=== PATIENT | female | born 1955 | race Caucasian/White ===

== ENCOUNTER 2020-02-22 13:12 | Outpatient (CLI) | payer MEDICARE, OTHER | END 2020-02-22 23:59 | disposition home or self-care (01) | LOC: LAB.WCP 13:12 | PROVIDERS: ATTEND Physician Assistant | DX: R19.7 Diarrhea, unspecified (principal) | CPT/HCPCS: 36415; 81599; 86003 ==

== ENCOUNTER → 2020-03-30 | Outpatient (CLI) | payer MEDICARE ==
[2020-03-30 12:01] LABS: BASOPHILS % (AUTO) 1.1 %; EOSINOPHILS # (AUTO) 0.3 10^3/uL (0.0-0.7); EOSINOPHILS % (AUTO) 6.9 %; HGB - HEMOGLOBIN 13.9 g/dL (12.0-16.0); LYMPHOCYTES # (AUTO) 1.1 10^3/uL (1.5-3.5); LYMPHOCYTES % (AUTO) 30.1 %; MEAN CORPUSCULAR HEMOGLOBIN 30.5 pg (27.0-31.0); MEAN CORPUSCULAR HGB CONC 31.8 g/dL (32.0-36.0); MEAN PLATELET VOLUME 11.2 fL (7.9-10.8); MONOCYTES # (AUTO) 0.4 10^3/uL (0.0-1.0); MONOCYTES % (AUTO) 10.2 %; NEUTROPHILS # (AUTO) 1.9 10^3/uL (1.5-6.6); NEUTROPHILS % (AUTO) 51.4 %; PLT - PLATELET COUNT 215 10^3/uL (130-450); RED BLOOD COUNT 4.55 10^6/uL (4.20-5.40); RED CELL DISTRIBUTION WIDTH 12.8 % (12.0-15.0); WHITE BLOOD COUNT 3.6 x10^3/uL (4.8-10.8)
[2020-03-30 12:17] LABS: ALBUMIN 3.8 g/dL (3.2-5.5); ALBUMIN/GLOBULIN RATIO 1.4 (1.0-2.2); ALKALINE PHOSPHATASE 65 IU/L (42-121); ALT ALANINE AMINOTRANSFERASE 32 IU/L (10-60); AST ASPARTATE AMINOTRANSFERASE 28 IU/L (10-42); BILIRUBIN,TOTAL 0.6 mg/dL (0.2-1.0); BUN - BLOOD UREA NITROGEN 12 mg/dL (6-20); CALCIUM 8.9 mg/dL (8.5-10.3); CARBON DIOXIDE - CO2 25 mmol/L (21-32); CHLORIDE 106 mmol/L (101-111); CHOL/HDL RATIO 3.2 (<4.4); CHOLESTEROL 243 mg/dL; CREATININE 0.6 mg/dL (0.4-1.0); GLUCOSE 112 mg/dL (70-100); HDL CHOLESTEROL 76 mg/dL; LDL CHOLESTEROL,CALCULATED 152 mg/dL; SODIUM 137 mmol/L (135-145); TOTAL PROTEIN 6.6 g/dL (6.7-8.2); VLDL CHOLESTEROL 15 mg/dL
== END ==
LOC: LAB.WCP 09:28
PROVIDERS: ATTEND Physician Assistant
DX: E78.5 Hyperlipidemia, unspecified (principal); E03.9 Hypothyroidism, unspecified
CPT/HCPCS: 36415; 80053; 80061; 83721; 84443; 85025

== ENCOUNTER 2020-06-22 08:00 | Outpatient (CLI) | payer MEDICARE ==
[2020-06-22 18:46] LABS: BASOPHILS # (AUTO) 0.1 10^3/uL (0.0-0.1); BASOPHILS % (AUTO) 1.1 %; EOSINOPHILS # (AUTO) 0.3 10^3/uL (0.0-0.7); EOSINOPHILS % (AUTO) 5.4 %; HCT - HEMATOCRIT 45.2 % (37.0-47.0); HGB - HEMOGLOBIN 14.2 g/dL (12.0-16.0); LYMPHOCYTES # (AUTO) 1.3 10^3/uL (1.5-3.5); LYMPHOCYTES % (AUTO) 27.3 %; MEAN CORPUSCULAR HEMOGLOBIN 30.6 pg (27.0-31.0); MEAN CORPUSCULAR HGB CONC 31.4 g/dL (32.0-36.0); MEAN CORPUSCULAR VOLUME 97.4 fL (81.0-99.0); MONOCYTES # (AUTO) 0.4 10^3/uL (0.0-1.0); NEUTROPHILS # (AUTO) 2.7 10^3/uL (1.5-6.6); PLT - PLATELET COUNT 220 10^3/uL (130-450); RED BLOOD COUNT 4.64 10^6/uL (4.20-5.40); RED CELL DISTRIBUTION WIDTH 13.1 % (12.0-15.0); WHITE BLOOD COUNT 4.7 x10^3/uL (4.8-10.8)
== END 2020-06-22 23:59 | disposition home or self-care (01) ==
LOC: LAB.WCP 08:00
PROVIDERS: ATTEND Physician Assistant
DX: E78.5 Hyperlipidemia, unspecified (principal)
CPT/HCPCS: 36415; 85025

== ENCOUNTER 2020-06-22 11:00 | Outpatient (CLI) | payer MEDICARE ==
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
[2020-06-22 11:47] VITALS: BP 149/88
== END 2020-06-22 11:01 | disposition home or self-care (01) ==
LOC: SC 11:00
PROVIDERS: ATTEND Nurse Practitioner Family
DX: G47.10 Hypersomnia, unspecified (principal); R41.89 Other symptoms and signs involving cognitive functions and awareness; G47.8 Other sleep disorders; R51.9 Headache, unspecified; R06.81 Apnea, not elsewhere classified; R06.83 Snoring; E66.01 Morbid (severe) obesity due to excess calories; Z68.42 Body mass index [BMI] 45.0-49.9, adult
CPT/HCPCS: 99203; G0463; 99212

== ENCOUNTER 2020-09-19 14:52 | Outpatient (CLI) | payer MEDICARE | END 2020-09-19 14:53 | disposition home or self-care (01) | LOC: SC 14:52 | PROVIDERS: ATTEND Nurse Practitioner Family | DX: G47.33 Obstructive sleep apnea (adult) (pediatric) (principal); R09.02 Hypoxemia; E66.9 Obesity, unspecified; Z68.42 Body mass index [BMI] 45.0-49.9, adult | CPT/HCPCS: G0399 ×2; 95806 ==

== ENCOUNTER 2020-10-05 10:07 | Outpatient (CLI) | payer MEDICARE ==
--- NOTE | 2020-10-05 10:40 | SLEEP CARE CONSULTATION ---
Information from patient questionnaire entered by Margarita Ruggiero. I have reviewed and concur with the information entered by Margarita Ruggiero. This document represents the service I personally performed and the decisions made by , Cherelle Fernandez ARNP. History of Present Illness Service Date and Time: 10/05/2020 1007 Initial [place] Sleepiness Scale score: 4 (in 2020) Current [place] Sleepiness Scale score: 3 Additional HPI information: NIRALI PATRICK returns for follow up and results of the recently performed home sleep study. I explained the pathophysiology behind obstructive sleep apnea. We then spent quite a bit of time discussing different treatment options. For mild obstructive sleep apnea, surgery and oral appliance are alternatives to nasal CPAP therapy but in moderate or severe cases, nasal CPAP is the most effective and reliable treatment. Because apnea is primarily in supine position, then positional management therapy could be effective. Methods discussed such as positioning with pillows, using a T-shirt with tennis balls in the back, and shown commercial products that have a pillow format on back to prevent supine sleep. I reviewed the impact of weight changes on sleep apnea and strongly recommended losing weight. After some discussion, the patient opted to go with the nasal CPAP therapy. Nasal autoCPAP set at 4-15 cmH20 will be ordered with rationale explained. A manual titration study will be ordered if unable to find optimal pressure with office adjustments. I explained how CPAP machine works with sample devices Respironics Dreamstation and ResPartSimple [id number] and what to expect when using the machine. Using CPAP every night in order to get used to it was emphasized. Patient advised to put CPAP mask on before getting into bed so as not to fall asleep without CPAP. To assist acclimation to CPAP use, it could also be used for a short time during day while reading or watching TV. The patient was instructed to call the CPAP supplier to discuss any mechanical problem that may occur. If the mask given is uncomfortable or is difficult to keep on through the night even with adjustment, contact the CPAP supplier as many will replace with another mask style if notified before 30 days. If snoring or perceives is not getting enough air or too much air from the machine, notify this office. [facility] patient education PAP tips reviewed and given to patient. Patient counseled not drink alcohol less than 4 hours before bedtime as it can increase snoring and apnea. Patient was cautioned about risks of drowsy driving until sleepiness symptoms resolve. Sleep Study - Results Type of Sleep Study: Home sleep study Prior sleep studies: Yes Year and Where: 5-6 years ago Polysomnography/Home Sleep Study results: Physician Impression: The quality of the study is good. The length of the study is adequate (> 240 minutes). Please also see the tabulated and graphic data. 1. Obstructive Sleep Apnea-Hypopnea (ICD-10 G47.33), severe, with an AHI of 41.0 /hr and mitzy SaO2 of 83%. During the study, the patient had 237 apneas (235 obstructive, 0 central, 2 mixed) and 129 hypopneas. The longest episode lasted 127.5 seconds. The respiratory events occurred slightly more frequently during supine sleep (supine AHI was 42.3 and non-supine, 33.91). 2. Hypoxemia (ICD-10 R09.02), mild, with the lowest oxygen saturation of 83 % and 41.4 minutes with SaO2 under 90%. Baseline oxygen saturation was normal (Average oxygen saturation was 93%). Allergies and Home Medications Home medication list reviewed: Yes (no new meds) Review of Systems Review of systems same as previous: Yes (no changes) Physical Exam Heart Rate: 67 O2 Saturation: 91 Height: 5 ft 2 in Weight: 240 lb Body Mass Index: 43.9 BMI Classification: Morbidly Obese Impression and Plan 1. Obstructive Sleep Apnea-Hypopnea Syndrome, severe, with lowest oxygen saturation of 83%. Obviously this is the cause of the patients symptoms of unrefreshed sleep, and excessive daytime sleepiness. Positive pressure therapy could benefit hypertension and gastric reflux. As mentioned above, the patient will be started on nasal autoCPAP therapy with pressure set at 4-15 cmH2O. Compliance guidelines also reviewed. A copy of compliance guidelines will be given for reference at check out. Because the apnea is more severe supine, I instructed to avoid sleeping supine using pillow positioning until able to start CPAP use. * Nasal auto CPAP therapy, pressure at 4-15 cm H2O. * Attempt to lose weight. * Avoid alcohol consumption near bedtime. * Avoid supine sleep until using CPAP. * The patient is again cautioned about driving until sleepiness completely resolves. * Return one month after CPAP obtained. I will assess response to therapy and compliance at that time. Counseling Topics: Weight loss health impact Visit Type: In Office Time Spent with Patient (minutes): 21 Provider Statement: I spent 100% of the Face to Face Visit with the patient with greater than 50% spent counseling the patient and coordination of care.
== END 2020-10-05 10:08 | disposition home or self-care (01) ==
LOC: SC 10:07
PROVIDERS: ATTEND Nurse Practitioner Family
DX: G47.33 Obstructive sleep apnea (adult) (pediatric) (principal); E66.01 Morbid (severe) obesity due to excess calories; Z68.42 Body mass index [BMI] 45.0-49.9, adult
CPT/HCPCS: 99213; G0463; 99212

== ENCOUNTER 2020-12-20 13:17 | Outpatient (CLI) | payer MEDICARE ==
--- NOTE | 2020-12-20 13:57 | SLEEP CARE CONSULTATION ---
Information from patient questionnaire entered by Margarita Ruggiero. I have reviewed and concur with the information entered by Margarita Ruggiero. This document represents the service I personally performed and the decisions made by , Cherelle Fernandez ARNP. History of Present Illness Service Date and Time: 12/20/2020 1317 Previous diagnosis: Severe, Obstructive Sleep Apnea-Hypopnea Syndrome AHI: 41.0 (in 2020) Reason for follow up: first compliance Equipment type: CPAP Equipment obtained from: [employer] (got initial supplies) Mask style: Nasal Backup mask available: No (will keep old mask when replaced) Last cushion change: 1 month Prior sleep studies: Yes Year and Where: 2020 - [facility]; 5-6 years ago - unknown Type of Sleep Study: Home sleep study HPI additional information: NIRALI PATRICK was diagnosed to have severe, AHI 41.0, obstructive sleep apnea- hypopnea syndrome and returned today for CPAP therapy first compliance follow- up. CPAP Compliance Data - Data Reviewed with Patient Average duration of nightly device use: 7 hr 44 min Compliance rate %: 96.7 Current pressure setting (cmH2O): 4-15 (median 10.5, avg 11.6 and max 12.8) Humidity settin Heated hose settin Average residual AHI: 2.7 Average large leak: 6 sec Subjective Patient concerns: denies: aerophagia, mask discomfort, air blowing in eyes, mask leak noise, condensation in mask/hose, nasal congestion, dry mouth, nose, throat, epistaxis, other Observed to snore while using device: No Current pressure setting perceived as: comfortable On therapy, patient: reports: sleeping better, awakening more refreshed, being more awake and alert during the day. denies: more rested overall, drowsiness while driving Initial [place] Sleepiness Scale score: 4 (in 2019) Current [place] Sleepiness Scale score: 0 Allergies and Home Medications Home medication list reviewed: Yes (no changes) Review of Systems Review of systems same as previous: Yes (no changes) Physical Exam Heart Rate: 59 O2 Saturation: 98 Height: 5 ft 2 in Weight: 250 lb Body Mass Index: 45.7 BMI Classification: Morbidly Obese Impression and Plan 1. Obstructive Sleep Apnea-Hypopnea Syndrome, severe, with good treatment compliance and good apnea control. On CPAP therapy, the patient has better sleep quality and is more rested overall. The patients pressure will be changed to autoCPAP 10-13 cmH20 to reflect the pressures that she has been using consistently. Patient advised to contact me if pressure change is uncomfortable so that it can be adjusted. Goals for apnea control discussed. She has noted with her nasal cushion mask that the pressure feels more diffuse over her nose rather than having "jets of air" in each nostril. She does not know if this is normal. I informed her that this is normal and that if she finds it uncomfortable that she may try a different style of mask. She does not feel that the pressure is too low. Patient's apnea severity and rationale for treatment to reduce apnea, improve sleep quality and reduce cardiovascular and cerebrovascular events was reviewed. I also reviewed the benefit of consistent device use of CPAP for hypertension and gastric reflux. * Change auto CPAP pressure to 10-13 cmH2O * Notify me if snoring with mask or feeling that the pressure is too much or too little * Attempt to lose weight * Call this office if any problems using CPAP * Return for follow up in 1-2 months, or sooner if concerns arise Counseling Topics: Spare mask, Weight loss health impact Visit Type: In Office Time Spent with Patient (minutes): 23 Provider Statement: I spent 100% of the Face to Face Visit with the patient with greater than 50% spent counseling the patient and coordination of care.
== END 2020-12-20 13:18 | disposition home or self-care (01) ==
LOC: SC 13:17
PROVIDERS: ATTEND Nurse Practitioner Family
DX: G47.33 Obstructive sleep apnea (adult) (pediatric) (principal); E66.01 Morbid (severe) obesity due to excess calories; Z68.42 Body mass index [BMI] 45.0-49.9, adult
CPT/HCPCS: 99213; G0463; 99212

== ENCOUNTER 2021-02-20 10:50 | Outpatient (CLI) | payer MEDICARE ==
--- NOTE | 2021-02-20 11:13 | SLEEP CARE CONSULTATION ---
Information from patient questionnaire entered by Margarita Ruggiero. I have reviewed and concur with the information entered by Margarita Ruggiero. This document represents the service I personally performed and the decisions made by , Cherelle Fernandez ARNP. History of Present Illness Service Date and Time: 02/20/2021 1050 Previous diagnosis: Severe, Obstructive Sleep Apnea-Hypopnea Syndrome AHI: 41.0 (in 2020) Reason for follow up: other (2 month with pressure change) Equipment type: CPAP Equipment obtained from: [employer] (getting supplies as needed) Mask style: Nasal Backup mask available: Yes (other mask) Last cushion change: 3 weeks [facility]: Yes [facility] Type of Sleep Study: Home sleep study HPI additional information: NIRALI PATRICK was diagnosed to have severe, AHI 41.0, obstructive sleep apnea- hypopnea syndrome and returned today for CPAP therapy two month with pressure change follow-up. CPAP Compliance Data - Data Reviewed with Patient Average duration of nightly device use: 8 hr 12 min Compliance rate %: 100 (60 days) Current pressure setting (cmH2O): 10-13 Humidity settin Heated hose settin Average residual AHI: 2.4 Average large leak: 31 sec Subjective Patient concerns: reports: air blowing in eyes. denies: aerophagia, mask discomfort, mask leak noise, condensation in mask/hose, nasal congestion, dry mouth, nose, throat, epistaxis, other Observed to snore while using device: No Current pressure setting perceived as: too high (leaking into eyes on side) On therapy, patient: reports: sleeping better, awakening more refreshed, being more awake and alert during the day, more rested overall. denies: drowsiness while driving Initial [place] Sleepiness Scale score: 4 (in 2019) Current [place] Sleepiness Scale score: 1 Allergies and Home Medications Home medication list reviewed: Yes (no changes) Review of Systems Review of systems same as previous: Yes (no changes) Physical Exam Heart Rate: 68 O2 Saturation: 95 Height: 5 ft 2 in (pt declined weight measurement today) Impression and Plan 1. Obstructive Sleep Apnea-Hypopnea Syndrome, severe, with excellent treatment compliance and good apnea control. On CPAP therapy, the patient has better sleep quality and is more rested overall. She sleeps on her side and gets some mask leaks blowing up into her eyes. Mask leaks can be reduced by washing mask daily and changing mask cushions more frequently to improve mask seal and comfort. Additionally, mask leaks predominately from when patient sleeps on their side can be reduced by using a CPAP pillow which can be purchased online. She voiced understanding. Patient was encouraged to lose weight for their overall health and to reduce apneas. Patient's apnea severity and rationale for treatment to reduce apnea, improve sleep quality and reduce cardiovascular and cerebrovascular events was reviewed. I also reviewed the benefit of consistent device use of CPAP for hypertension and gastric reflux. * Change auto CPAP pressure to 10-12 cmH2O * Notify me if snoring with mask or feeling that the pressure is too much or too little * Attempt to lose weight * Call this office if any problems using CPAP * Return for follow up in 3 months, or sooner if concerns arise Counseling Topics: Spare mask, Weight loss health impact Visit Type: In Office Time Spent with Patient (minutes): 20 Provider Statement: I spent 100% of the Face to Face Visit with the patient with greater than 50% spent counseling the patient and coordination of care.
== END 2021-02-20 10:51 | disposition home or self-care (01) ==
LOC: SC 10:50
PROVIDERS: ATTEND Nurse Practitioner Family
DX: G47.33 Obstructive sleep apnea (adult) (pediatric) (principal)
CPT/HCPCS: 99213; G0463; 99212

== ENCOUNTER 2021-05-16 10:56 | Outpatient (CLI) | payer MEDICARE ==
[2021-05-16 11:39] VITALS: BP 134/86
--- NOTE | 2021-05-16 11:39 | SLEEP CARE CONSULTATION ---
Information from patient questionnaire entered by Brian Marcano MA. I have reviewed and concur with the information entered by Brian Marcano MA. This document represents the service I personally performed and the decisions made by , Cherelle Fernandez ARNP. History of Present Illness Service Date and Time: 05/16/2021 1056 Previous diagnosis: Severe, Obstructive Sleep Apnea-Hypopnea Syndrome AHI: 41.0 (in 2020) Reason for follow up: three month (pressure change) Equipment type: CPAP Equipment obtained from: [employer] (getting supplies as needed) Mask style: Nasal Backup mask available: Yes (old mask) Last cushion change: 1.5 weeks Prior sleep studies: Yes Year and Where: 2020 [facility]; 5-6 years [facility] - unknown Type of Sleep Study: Home sleep study HPI additional information: NIRALI PATRICK was diagnosed to have severe, AHI 41.0, obstructive sleep apnea- hypopnea syndrome and returned today for CPAP therapy three month with pressure change follow-up. Sleep Study - Results Type of Sleep Study: Home sleep study Prior sleep studies: Yes [facility] and [facility]: [facility]; 5[facility]6 years [facility] - unknown CPAP Compliance Data - Data Reviewed with Patient Average duration of nightly device use: 8 hours 43 minutes Compliance rate %: 100 Current pressure setting (cmH2O): 10 - 12 Humidity settin Heated hose settin Average residual AHI: 2.3 Central apnea: 0.4 Obstructive apnea: 1.0 Average large leak: 3 seconds Subjective Patient concerns: reports: air blowing in eyes (when moving in bed). denies: aerophagia, mask discomfort, mask leak noise, condensation in mask/hose, nasal congestion, dry mouth, nose, throat, epistaxis, other Observed to snore while using device: No Current pressure setting perceived as: comfortable On therapy, patient: reports: sleeping better, awakening more refreshed, being more awake and alert during the day, more rested overall. denies: drowsiness wh ile driving Initial [place] Sleepiness Scale score: 4 (in 2019) Current [place] Sleepiness Scale score: 0 Allergies and Home Medications Home medication list reviewed: Yes (no changes) Review of Systems Review of systems same as previous: Yes (no changes) Physical Exam Vital signs obtained and entered by: Emmanuel Marcano CMA KELSIE Blood Pressure: 134/86 (right wrist) Cuff size: wrist Heart Rate: 80 O2 Saturation: 96 (with mask) Height: 5 ft 2 in (pt declined weight measurement today) Weight: 240 lb (info per PT, did not want to be weighed. ) Body Mass Index: 43.9 BMI Classification: Morbidly Obese Impression and Plan 1. Obstructive Sleep Apnea-Hypopnea Syndrome, severe, with good treatment compliance and good apnea control. On CPAP therapy, the patient has better sleep quality and is more rested overall. Patient was disappointed when she tried to contact her DME about how often to change her mask because no one could answer her question. She did figure out on her own that she had enough supplies to change her mask 2 times a month. I did advise her that she should change out her mask cushion twice a month. She asked questions about CPAP outside contractor sales and I advised her that the FDA has not deemed them safe for use and that she should follow recessing machine operator's recommendations for warm soapy water for cleaning. She voiced understanding. Patient encouraged to try to lose weight to reduce apneas and improve her overall health. Patient's apnea severity and rationale for treatment to reduce apnea, improve sleep quality and reduce cardiovascular and cerebrovascular events was reviewed. I also reviewed the benefit of consistent device use of CPAP for hypertension and gastric reflux. * Continue auto CPAP pressure at 10-12 cmH2O * Notify me if snoring with mask or feeling that the pressure is too much or too little * Attempt to lose weight * Call this office if any problems using CPAP * Return for follow up in 6 months, or sooner if concerns arise Counseling Topics: Spare mask, Weight loss health impact Visit Type: In Office Time Spent with Patient (minutes): 24 Provider Statement: I spent 100% of the Face to Face Visit with the patient with greater than 50% spent counseling the patient and coordination of care.
== END 2021-05-16 10:57 | disposition home or self-care (01) ==
LOC: SC 10:56
PROVIDERS: ATTEND Nurse Practitioner Family
DX: G47.33 Obstructive sleep apnea (adult) (pediatric) (principal); E66.01 Morbid (severe) obesity due to excess calories; Z68.41 Body mass index [BMI] 40.0-44.9, adult
CPT/HCPCS: 99213; G0463; 99212

== ENCOUNTER 2021-10-10 11:25 | Emergency (ER) | payer MEDICARE ==
--- NOTE | 2021-10-10 11:50 | ED Physician Documentation ---
History of Present Illness - Stated complaint Stated Complaint: FALL,FACE INJURY - Chief complaint Chief Complaint: Laceration - Additonal information Additional information: 66-year-old female presents emergency department for evaluation of facial trauma. [place] forward landing directly on cement. She did not have loss of consciousness. She is not anticoagulated. She was able to get up on her own and drive to the emergency department however she has a moderate amount of epistaxis predominantly on the left side as well as ecchymosis and laceration to her nose with deviation. She also has pain in her teeth and upper lip secondary to contusion. Review of Systems Constitutional: reports: Reviewed and negative Eyes: reports: Reviewed and negative Nose: reports: Epistaxis, Other (Left Septal deviation) Throat: reports: Dental pain / toothache. denies: Oral lesions / sores, Sore throat Cardiac: reports: Reviewed and negative Respiratory: reports: Reviewed and negative GI: reports: Reviewed and negative : reports: Reviewed and negative PD PAST MEDICAL HISTORY - Past Medical History Past Medical History: No Cardiovascular: Hypertension Endocrine/Autoimmune: HyPERthyroidism - Past Surgical History Past Surgical History: Yes Ortho: Carpal Tunnel surgery, Other - Present Medications Home Medications: Ambulatory Orders Medication Instructions Recorded Confirmed Levothyroxine [Synthroid] 1 tab PO DAILY 11/18/15 10/10/21 Esomeprazole Magnesium [Nexium] 5 mg PO DAILY 10/10/21 10/10/21 HYDROcod/ACETAM 5/325 [[place] 5/325] 1 - 2 tablet PO Q6H PRN #10 tablet 10/10/21 Metoprolol Succinate [Toprol Xl] 25 mg PO ONCE 10/10/21 10/10/21 cephALEXin [Keflex] 500 mg PO Q6H #28 cap 10/10/21 - Allergies Allergies/Adverse Reactions: Allergies Allergy/AdvReac Type Severity Reaction Status Date / Time morphine Allergy Itching Verified 10/10/21 11:36 - Social History Does the pt smoke?: No Smoking Status: Never smoker Does the pt drink ETOH?: No Does the pt have substance abuse?: No - Immunizations Immunizations are current?: No Immunizations: TDAP >10years/unknown - POLST Patient has POLST: No PD ED PE EXPANDED - General General: Alert, No acute distress, Well developed/nourished - HEENT HEENT: Head injury, PERRL, EOMI, Left nares epistaxis (Left septal deviation. 1.5 cm laceration on the bridge of the nose. Moderate ecchymosis to the nose and under the left orbit. Contusion to the upper lip.), Pharynx normal, Pharyngeal erythema, Dentition normal. No: Atraumatic, Dental decay, Dental trauma - Neck Neck: Supple w/out meningeal sx. No: Stiff neck, Adenopathy, No tenderness - Cardiac Cardiac: Regular Rate, Radial strong equal, Pedal strong equal. No: Murmur Present - Respiratory Respiratory: Clear to ausultation carmelo. No: Distress, Labored - Abdomen Abdomen: Normal Bowel sounds. No: Tender to palpation - Derm Derm: Normal color, Warm and dry. No: Rash - Extremities Extremities: Normal. No: Deformity, Tenderness - Neuro Neuro: Alert and Oriented X 3, CNII-XII intact, Cerebellar nl, Normal gait, Normal finger nose, Normal speech. No: Confused, Disoriented - GCS Eye Opening: Spontaneous Motor: Obeys Commands Verbal: Oriented Total: 15 Results - Vitals Vitals: Vital Signs - 24 hr 10/10/21 10/10/21 11:29 11:34 Temperature 36.0 C L Heart Rate 78 Respiratory 17 Rate Blood Pressure 187/96 H O2 Saturation 100 Oxygen O2 Source Room air - Rads (name of study) Ct max/fac/head Radiology: Final report received (No acute intracranial process. Comminuted and mildly displaced fractures of the bilateral nasal bones and of the maxillary anterior nasal spine) Procedures - Laceration (location) nasal bridge Length in cm: 2 Wound type: Linear, Irregular, Into subcut fat, Clean Anesthesia: Lidocaine 1% with epi Wound preparation: Chlorhexadine, Irrigated copiously NS Skin layer closure: Interrupted, Size #-0 - enter number (6), Sutures - enter # (3) Other: Patient tolerated well, No complications, Neurovascular intact PD MEDICAL DECISION MAKING - ED course Complexity details: considered differential, d/w patient ED course: 58-year-old female presents emergency department for evaluation of facial trauma after a ground-level fall while walking on the beach. She stepped on [place] falling forward striking her head on concrete. She presents with laceration to the bridge of her nose as well as some mild ecchymosis under her left eye. CT maxillofacial bones as well as CT the head did not show any intracranial trauma but she does have a comminuted mildly displaced bilateral nasal fractures. Wound was sutured at the bedside. She is placed on antibiotics prophylactically. Discussed nasal precautions and will have her follow-up with Ghulam Fuller. Tetanus was updated today. I am prescribing a short course of short-acting opioid pain medication for this patient. I have reviewed the patients [employer] and no concerning findings were noted. I have discussed that the opioids are for short term therapy only, and will not be refilled from the ED. Departure - Departure Disposition: Home, Self Care Clinical Impression: Nasal bones, open fracture Qualifiers: Encounter type: initial encounter Qualified Code(s): S02.2XXB - Fracture of nasal bones, initial encounter for open fracture Nasal laceration Qualifiers: Encounter type: initial encounter Qualified Code(s): S01.21XA - Laceration without foreign body of nose, initial encounter Condition: Stable Record reviewed to determine appropriate education?: Yes Instructions: ED Fx Nasal Conf W X Ray Prescriptions: cephALEXin [Keflex] 500 mg PO Q6H #28 cap HYDROcod/ACETAM 5/325 [[place] 5/325] 1 - 2 tablet PO Q6H PRN #10 tablet PRN Reason: Pain Comments: Annemarie rizo are seen today in the emergency department after fall in which she hit her head on concrete. You did have an abrasion and laceration on the bridge of your nose. We did close that with 3 sutures. These should be removed in about 7 to [address] scan does confirm that you have fractures of both your nasal bones. It is important that you practice what are called nasal precautions. Avoid forcefully blowing your nose as doing this could cause air to escape into the soft tissues of your face causing increased swelling and discomfort. You may shower normally. I recommend you place a thin layer of antibiotic ointment such as bacitracin or Neosporin over your laceration. I am prescribing a limited amount of narcotics to help with pain. Because this is technically an open fracture please fill the prescription for the Keflex and begin taking 4 times a day for the next week. Please call office [phone] [facility] [address] [place] [address] He would like to see you in his office within the next 7 to 10 days. When you go to his office please bring the CD Ebenezer that you have so that he can see the CAT scan images. If it any point you develop fevers, have increased pain uncontrolled vomiting or uncontrolled nasal bleeding then please return to the ER for a second evaluation.
[2021-10-10] MEDS ORDERED: HYDROmorphone 1 MG/ML CARPUJECT IM STA (11:52)
[2021-10-10] MEDS ORDERED: LIDOCAINE 1%-EPI 1:100000 20 ML MDV SUBQ STA (12:44)
[2021-10-10] MEDS ORDERED: TETANUS/DIPHTHERIA/PERTUSSIS 0.5 ML SYRINGE IM ONE (12:44)
--- NOTE | 2021-10-10 12:46 | CT Report ---
PROCEDURE: HEAD WO INDICATIONS: Ground-level fall; facial trauma TECHNIQUE: Noncontrast 4.5 mm thick angled axial sections acquired from the foramen magnum to the vertex. For r adiation dose reduction, the following was used: automated exposure control, adjustment of mA and/or kV according to patient size. COMPARISON: None. FINDINGS: Image quality: Excellent. CSF spaces: Basal cisterns are patent. No extra-axial fluid collections. Ventricles are normal in size and shape. Brain: No midline shift. No intracranial masses or hemorrhage. Bajwa-white matter interface is norm al. Skull and face: Comminuted and mildly displaced bilateral nasal bone fractures. The remaining visuali zed osseous structures are intact. Sinuses: Visualized sinuses and mastoids are clear. IMPRESSION: Intracranial mild displays bilateral comminuted nasal fractures. No acute intracranial fi nding. Reviewed by: Gylnn Lopes MD on 10/10/2021 12:44 PM PDT Approved by: Glynn Lopes MD on 10/10/2021 12:44 PM PDT Station ID: [id number]
--- NOTE | 2021-10-10 12:49 | CT Report ---
PROCEDURE: MAXILLOFACIAL WO INDICATIONS: fall; nasal trauma TECHNIQUE: Noncontrast 1.5 mm thick axial images acquired from the mandible through the frontal sinuses, with co suresh and sagittal reformatting. For radiation dose reduction, the following was used: automated ex posure control, adjustment of mA and/or kV according to patient size. COMPARISON: None. FINDINGS: Image quality: Excellent. Bones and teeth: There are bilateral mildly displaced and comminuted nasal bone fractures. There is a lso a comminuted and mildly displaced fracture of the anterior nasal spine of the maxilla. The nasal septum is intact. Remaining bones of the face are intact. Sinuses: Paranasal sinuses are aerated, without fluid levels, mucosal thickening, or mucoceles. Mas toid air cells are aerated. Soft tissues: No edema, masses, or fluid collections. No enlarged lymph nodes. No soft tissue lace rations or debris. Vascular: Visualized vascular structures appear normal in the absence of contrast. Bony vascular fo ramina and canals are intact. IMPRESSION: Comminuted and mildly displaced fractures of the bilateral nasal bones and of the and maxillary anter ior nasal spine. Reviewed by: Glynn Lopes MD on 10/10/2021 12:47 PM PDT Approved by: Glynn Lopes MD on 10/10/2021 12:47 PM PDT Station ID: [id number]
[2021-10-10] MEDS ORDERED: BACITRACIN ZINC OINT 1 PACKET TOP STA (13:19)
[2021-10-10 13:34] VITALS: BP 150/90
== END 2021-10-10 13:34 | disposition home or self-care (01) ==
LOC: ED 11:25
DX: S02.2XXB Fracture of nasal bones, initial encounter for open fracture (principal); W18.31XA Fall on same level due to stepping on an object, initial encounter; Y93.01 Activity, walking, marching and hiking; Y92.832 Beach as the place of occurrence of the external cause
CPT/HCPCS: 12011; 70450; 70486; 90471; 90715; 96372; 99283; 99284; A9270; J1170

== ENCOUNTER 2022-03-07 10:16 | Outpatient (CLI) | payer MEDICARE ==
[2022-03-07 11:02] VITALS: BP 156/76
--- NOTE | 2022-03-07 11:02 | SLEEP CARE CONSULTATION ---
Information from patient questionnaire entered by Ev Brito. I have reviewed and concur with the information entered by Ev Brito. This document represents the service I personally performed and the decisions made by , Cherelle Fernandez ARNP. History of Present Illness Service Date and Time: 03/07/2022 1016 Previous diagnosis: Severe, Obstructive Sleep Apnea-Hypopnea Syndrome AHI: 41.0 (in 2020) Reason for follow up: other (10 MONTH F/U, LAST SEEN 05/13) Equipment type: CPAP (DREAMSTATION) Equipment obtained from: [employer] (getting supplies as needed) Mask style: Nasal Mask brand: Respironics (Dreamwear) Backup mask available: Yes (other mask) Last cushion change: 2 days Prior sleep studies: Yes Year and Where: 2020 - [facility]; 5-6 years ago - unknown Type of Sleep Study: Home sleep study HPI additional information: NIRALI PATRICK was diagnosed to have severe, AHI 41.0, obstructive sleep apnea- hypopnea syndrome and returned today for CPAP therapy 10 month follow-up. Sleep Study - Results Type of Sleep Study: Home sleep study Prior sleep studies: Yes Year and Where: 2020 - [facility]; 5-6 years ago - unknown CPAP Compliance Data - Data Reviewed with Patient Average duration of nightly device use: 8 HOURS, 9 MINUTES, 44 SECONDS Compliance rate %: 87.2 (09/07/21 TO 03/05/22; 158/180 days used) Current pressure setting (cmH2O): 10-12 Average residual AHI: 1.6 Subjective Missed days of use due to: reports: other (fall/surgery) Patient concerns: reports: air blowing in eyes, mask leak noise. denies: aerophagia, mask discomfort, condensation in mask/hose, nasal congestion, dry mouth, nose, throat, epistaxis Observed to snore while using device: No Current pressure setting perceived as: comfortable On therapy, patient: reports: sleeping better, awakening more refreshed, being more awake and alert during the day, more rested overall. denies: drowsiness while driving Initial [place] Sleepiness Scale score: 4 (in 2019) Current [place] Sleepiness Scale score: 1 (03/07/22) Allergies and Home Medications Drug allergies reviewed: Yes (morphine) Home medication list reviewed: Yes (no changes) Allergy and home medication list: Allergies morphine Allergy (Verified 10/10/21 11:36) Itching Review of Systems Review of systems same as previous: No (face plant Sep 2021; had surgery on nose) Physical Exam Vital signs obtained and entered by: ELLINGTON MA Blood Pressure: 156/76 (RIGHT ARM ) Cuff size: long Heart Rate: 61 O2 Saturation: 98 Height: 5 ft 2 in Weight: 250 lb (pt states, declines getting weighed) Body Mass Index: 45.7 BMI Classification: Morbidly Obese Impression and Plan 1. Obstructive Sleep Apnea-Hypopnea Syndrome, severe, with good treatment compliance and good apnea control. On CPAP therapy, the patient has better sleep quality and is more rested overall. Patient has had difficulty her mask causing soreness under her nose since her surgery. She states she did a "face plant" and had to have surgery on her nose that had been fractured. She gets soreness on the lower part of her nose. She increased the size of her headgear to medium and that has helped but she still gets soreness on her nose. I advised her to try a different size nasal cushion to see if that would help reduce the pressure on her nose. She states that she does have some different sizes at home and she will try this. She will notifiy us if she needs anything further. Patient's apnea severity and rationale for treatment to reduce apnea, improve sleep quality and reduce cardiovascular and cerebrovascular events was reviewed. I also reviewed the benefit of consistent device use of CPAP for hypertension and gastric reflux. 2. Obesity, unspecified. Currently patients BMI is 45.7. Obesity increases the risk of apnea, CPAP pressure requirements and overall health risks especially cardiovascular and diabetes. Thus patient is advised to lose weight. Weight loss can be done with reducing portion size, reducing refined foods and balancing content with vegetables, fruit and whole grain foods. In addition, patient encouraged to get regular exercise. * Continue auto CPAP pressure at 10-12 cmH2O * Try different mask cushion sizes for comfort * Notify me if snoring with mask or feeling that the pressure is too much or too little * Attempt to lose weight * Call this office if any problems using CPAP * Return for follow up in 1 year, or sooner if concerns arise Counseling Topics: Spare mask, Weight loss health impact Visit Type: In Office Time Spent with Patient (minutes): 23 Provider Statement: I spent 100% of the Face to Face Visit with the patient with greater than 50% spent counseling the patient and coordination of care.
== END 2022-03-07 10:17 | disposition home or self-care (01) ==
LOC: SC 10:16
PROVIDERS: ATTEND Nurse Practitioner Family
DX: G47.33 Obstructive sleep apnea (adult) (pediatric) (principal); E66.01 Morbid (severe) obesity due to excess calories; Z68.42 Body mass index [BMI] 45.0-49.9, adult
CPT/HCPCS: 99213; G0463; 99212

== ENCOUNTER 2023-03-11 11:08 | Outpatient (CLI) | payer MEDICARE ==
--- NOTE | 2023-03-11 11:51 | Sleep Patient Instructions ---
Sleep Center Visit Summary - Patient Visit Information Reason for Visit: Annual visit for PAP therapy - Patient Instructions Additional Instructions: You will continue with CPAP therapy with pressure set at 10-12 cmH2O. A supply prescription will be updated with your DME. We encourage you to continue to try to lose weight. Please follow up with the sleep care office in 1 year. - Clinic Information Contact: [facility] [address] [place] [address] [email or web address] T: [phone]
[2023-03-11 11:56] VITALS: BP 156/82; O2SAT 95
--- NOTE | 2023-03-11 11:56 | SLEEP CARE CONSULTATION ---
Information from patient questionnaire entered by Dorcas Davis. I have reviewed and concur with the information entered by Dorcas Davis. This document represents the service I personally performed and the decisions made by , Cherelle Fernandez ARNP. History of Present Illness Service Date and Time: 03/11/2023 1108 Previous diagnosis: Severe, Obstructive Sleep Apnea-Hypopnea Syndrome AHI: 41.0 (in 2020) Reason for follow up: annual (LAST SEEN 02/2022) Equipment type: CPAP (DREAMSTATION 2, s/u 10/2020) Equipment obtained from: [employer] (getting supplies as needed) Mask style: Nasal (under nose) Backup mask available: Yes (old mask) Last cushion change: 2 weeks Prior sleep studies: Yes Year and Where: 2020 - [facility]; 5-6 years ago - unknown Type of Sleep Study: Home sleep study HPI additional information: NIRALI PATRICK was diagnosed to have severe, AHI 41, obstructive sleep apnea- hypopnea syndrome and returned today for CPAP therapy annual follow-up. Sleep Study - Results Type of Sleep Study: Home sleep study Prior sleep studies: Yes Year and Where: 2020 - [facility]; 5-6 years ago - unknown CPAP Compliance Data - Data Reviewed with Patient Average duration of nightly device use: 9 HRS 8 MINS 30 SECS Compliance rate %: 100 (09/08/22-03/06/23; 180/180 days used) Current pressure setting (cmH2O): 10-12 Average residual AHI: 1.4 Central apnea: 0.4 Obstructive apnea: 0.4 Hypopnea: 0.6 Average large leak: 3 secs Subjective Patient concerns: reports: air blowing in eyes (occasionally), nasal congestion (not just with PAP; broke nose last year). denies: aerophagia, mask discomfort, mask leak noise, condensation in mask/hose, dry mouth, nose, throat, epistaxis Observed to snore while using device: No Current pressure setting perceived as: comfortable On therapy, patient: reports: sleeping better, awakening more refreshed, being more awake and alert during the day, more rested overall. denies: drowsiness while driving Initial [place] Sleepiness Scale score: 4 (in 2019) Current [place] Sleepiness Scale score: 1 Allergies and Home Medications Known drug allergies: Yes (as listed) Drug allergies reviewed: Yes Home medication list reviewed: Yes (no changes; see scanned in list) Allergy and home medication list: Allergies morphine Allergy (Verified 03/10/23 08:38) Itching Review of Systems Review of systems same as previous: No (September 2022; L knee replacement) Physical Exam Vital signs obtained and entered by: Agnieszka Villarreal NP Blood Pressure: 156/82 Cuff size: wrist (left) Heart Rate: 56 O2 Saturation: 95 Height: 5 ft 2 in Weight: 214 lb Weight change since last visit: 46 lb loss Body Mass Index: 39.1 BMI Classification: Obese Impression and Plan 1. Obstructive Sleep Apnea-Hypopnea Syndrome, severe, with good treatment compliance and good apnea control. On CPAP therapy, the patient has better sleep quality and is more rested overall. Patient has significant improvement of their sleep apnea and is satisfied with current CPAP therapy. Patient denies problems with oral dryness, nasal congestion, epistaxis, skin irritation or aerophagia. Patient's apnea severity and rationale for treatment to reduce apnea, improve sleep quality and reduce cardiovascular and cerebrovascular events was reviewed. I also reviewed the benefit of consistent device use of CPAP for hypertension and gastric reflux. 2. Obesity, unspecified. Currently patients BMI is 39.1. Patient has been losing weight. Obesity increases the risk of apnea, CPAP pressure requirements and overall health risks especially cardiovascular and diabetes. Thus patient is advised to continue to try to lose weight. * Continue auto CPAP pressure at 10-12 cmH2O * Update supplies * Notify me if snoring with mask or feeling that the pressure is too much or too little * Attempt to lose weight * Call this office if any problems using CPAP * Return for follow up in 1 year, or sooner if concerns arise Counseling Topics: Spare mask, Weight loss health impact Visit Type: In Office Time Spent with Patient (minutes): 20 Provider Statement: I spent 100% of the Face to Face Visit with the patient with greater than 50% spent counseling the patient and coordination of care.
== END 2023-03-11 11:09 | disposition home or self-care (01) ==
LOC: SC 11:08
PROVIDERS: ATTEND Nurse Practitioner Family
DX: G47.33 Obstructive sleep apnea (adult) (pediatric) (principal); E66.9 Obesity, unspecified; Z68.39 Body mass index [BMI] 39.0-39.9, adult
CPT/HCPCS: 99213; G0463; 99212

== ENCOUNTER 2023-08-25 09:03 | Outpatient (CLI) | payer MEDICARE ==
[2023-08-25 11:53] LABS: BASOPHILS # (AUTO) 0.1 10^3/uL (0.0-0.1); BASOPHILS % (AUTO) 1.2 %; EOSINOPHILS # (AUTO) 0.2 10^3/uL (0.0-0.7); EOSINOPHILS % (AUTO) 4.4 %; HCT - HEMATOCRIT 41.2 % (37.0-47.0); HGB - HEMOGLOBIN 13.2 g/dL (12.0-16.0); LYMPHOCYTES # (AUTO) 1.2 10^3/uL (1.5-3.5); LYMPHOCYTES % (AUTO) 26.8 %; MEAN CORPUSCULAR HEMOGLOBIN 29.9 pg (27.0-31.0); MEAN CORPUSCULAR VOLUME 93.4 fL (81.0-99.0); MEAN PLATELET VOLUME 10.5 fL (7.9-10.8); MONOCYTES # (AUTO) 0.4 10^3/uL (0.0-1.0); MONOCYTES % (AUTO) 8.4 %; NEUTROPHILS # (AUTO) 2.5 10^3/uL (1.5-6.6); PLT - PLATELET COUNT 210 10^3/uL (130-450); RED BLOOD COUNT 4.41 10^6/uL (4.20-5.40); RED CELL DISTRIBUTION WIDTH 12.4 % (12.0-15.0); WHITE BLOOD COUNT 4.3 x10^3/uL (4.8-10.8)
[2023-08-25 12:07] LABS: ALBUMIN 4.2 g/dL (3.2-5.5); ALBUMIN/GLOBULIN RATIO 1.7 (1.0-2.2); ALKALINE PHOSPHATASE 71 IU/L (42-121); ALT ALANINE AMINOTRANSFERASE 18 IU/L (10-60); AST ASPARTATE AMINOTRANSFERASE 19 IU/L (10-42); BILIRUBIN,TOTAL 0.6 mg/dL (0.2-1.0); BUN - BLOOD UREA NITROGEN 13 mg/dL (6-20); CALCIUM 9.6 mg/dL (8.5-10.3); CARBON DIOXIDE - CO2 30 mmol/L (21-32); CHLORIDE 102 mmol/L (101-111); CHOL/HDL RATIO 3.3 (<4.4); CHOLESTEROL 229 mg/dL; CREATININE 0.8 mg/dL (0.6-1.3); GFR - MDRD 71 (>89); GLUCOSE 99 mg/dL (74-104); HDL CHOLESTEROL 70 mg/dL; LDL CHOLESTEROL,CALCULATED 139 mg/dL; POTASSIUM 3.8 mmol/L (3.5-4.5); SODIUM 136 mmol/L (135-145); TOTAL PROTEIN 6.7 g/dL (6.4-8.9); TRIGLYCERIDES 100 mg/dL (48-352); VLDL CHOLESTEROL 20 mg/dL
[2023-08-25 12:23] LABS: THYROID STIMULATING HORMONE 1.16 uIU/mL (0.34-5.60)
[2023-08-26 07:10] LABS: THYROID PEROXIDASE (TPO) AB <9 IU/mL (0-34)
[2023-08-26 08:10] LABS: ESTRADIOL 11.7 pg/mL (0.0-54.7); VITAMIN D 25-HYDROXY 70.3 ng/mL (30.0-100.0)
== END 2023-08-25 09:04 | disposition home or self-care (01) ==
LOC: LAB.N 09:03
PROVIDERS: ATTEND Nurse Practitioner
DX: I10 Essential (primary) hypertension (principal); E78.5 Hyperlipidemia, unspecified; E03.9 Hypothyroidism, unspecified; Z79.890 Hormone replacement therapy
CPT/HCPCS: 36415; 80053; 80061; 82306; 82607; 82670; 83001; 83721; 84403; 84439; 84443; 84481; 85025; 86376

== ENCOUNTER 2024-03-11 11:21 | Outpatient (CLI) | payer MEDICARE ==
--- NOTE | 2024-03-11 11:57 | Sleep Patient Instructions ---
Sleep Center Visit Summary - Patient Visit Information Reason for Visit: Annual Follow up - Patient Instructions Additional Instructions: You will continue with CPAP therapy with pressure set at 10-12 cmH2O. A supply prescription will be updated with your DME supplier. We encourage you to continue to try to lose weight. Please follow up with the sleep care office in 1 year. - Clinic Information Contact: [facility] [address] [place] [address] [email or web address] T: [phone]
--- NOTE | 2024-03-11 12:15 | SLEEP CARE CONSULTATION ---
Information from patient questionnaire entered by Mayte Davis. I have reviewed and concur with the information entered by Mayte Davis. This document represents the service I personally performed and the decisions made by , Cherelle Fernandez ARNP. History of Present Illness Service Date and Time: 03/11/2024 1121 Previous diagnosis: Severe, Obstructive Sleep Apnea-Hypopnea Syndrome AHI: 41 (in 2020) Reason for follow up: annual (LAST SEEN 02/2023) Equipment type: CPAP (DREAMSTATION 2, s/u 10/2020) Equipment obtained from: [employer] (getting supplies as needed) Mask style: Nasal (medium cushion) Mask brand: Respironics (Dreamwear) Backup mask available: Yes Last cushion change: every 2 weeks Prior sleep studies: Yes Year and Where: 2020 - [facility]; 5-6 years ago - unknown Type of Sleep Study: Home sleep study HPI additional information: NIRALI PATRICK was diagnosed to have severe, AHI 41, obstructive sleep apnea- hypopnea syndrome and returned today for CPAP therapy annual follow-up. Sleep Study - Results Type of Sleep Study: Home sleep study Prior sleep studies: Yes Year and Where: 2020 - [facility]; 5-6 years ago - unknown CPAP Compliance Data - Data Reviewed with Patient Average duration of nightly device use: 8 HRS 58 MINS 20 SECS Compliance rate %: 100 (09/11/23-03/08/24; 180/180 days used) Current pressure setting (cmH2O): 10-12 Average residual AHI: 1.2 Central apnea: 0.4 Obstructive apnea: 0.3 Hypopnea: 0.5 Average large leak: 2 secs Subjective Patient concerns: reports: air blowing in eyes, other (TISSUE UNDER NOSE). denies: aerophagia, mask discomfort, mask leak noise, condensation in mask/hose, nasal congestion, dry mouth, nose, throat, epistaxis Observed to snore while using device: No Current pressure setting perceived as: comfortable On therapy, patient: reports: sleeping better, awakening more refreshed, being more awake and alert during the day, more rested overall. denies: drowsiness while driving Initial [place] Sleepiness Scale score: 4 (in 2019) Current [place] Sleepiness Scale score: 1 (03/11/24) Allergies and Home Medications Known drug allergies: Yes (as listed) Drug allergies reviewed: Yes Home medication list reviewed: Yes (as listed) Allergy and home medication list: Allergies morphine Allergy (Verified 03/11/24 11:26) Itching Physical Exam Vital signs obtained and entered by: MAYTE Reynolds MA Blood Pressure: 165/81 (LEFT ARM) Cuff size: long Heart Rate: 62 O2 Saturation: 99 Height: 5 ft 2 in Weight: 221 lb 6.4 oz Body Mass Index: 40.4 BMI Classification: Morbidly Obese Impression and Plan 1. Obstructive Sleep Apnea-Hypopnea Syndrome, severe, with good treatment compliance and good apnea control. On CPAP therapy, the patient has better sleep quality and is more rested overall. Patient had a time where she was having difficulty with being able to breathe through one side of her nose. She she tried using Breathe Right strips to hold the sides of her nose more open and has seen an ENT specialist who said that everything is fine in her nose passages. She went through a time when she was more tired and taking naps in the afternoon but this also has resolved in the last few weeks. She has also been getting a little redness under her nose where the mask sits on her skin. I encouraged her to increase the humidity setting on her machine to see if a little more moisture will keep her nasal passages more open especially on the left side. She also may use a barrier over her mask to reduce skin irritation. She is going to try these things at home and will let me know if she has any further questions. Patient's apnea severity and rationale for treatment to reduce apnea, improve sleep quality and reduce cardiovascular and cerebrovascular events was reviewed. I also reviewed the benefit of consistent device use of CPAP for hypertension, gastric reflux. 2. Obesity, unspecified. Currently patients BMI is 40.4. Obesity increases the risk of apnea, CPAP pressure requirements and overall health risks especially cardiovascular and diabetes. Thus patient is advised to lose weight. * Continue auto CPAP pressure at 10-12 cmH2O * Update supply prescription * Notify me if snoring with mask or feeling that the pressure is too much or too little * Attempt to lose weight * Call this office if any problems using CPAP * Return for follow up in 12 months, or sooner if concerns arise Counseling Topics: Spare mask, Weight loss health impact Prescriptions: Device supplies Follow up with Sleep Care in: 1 year Visit Type: In Office Time Spent with Patient (minutes): 24 Provider Statement: I spent 100% of the Face to Face Visit with the patient with greater than 50% spent counseling the patient and coordination of care.
[2024-03-11 12:17] VITALS: BP 165/81; O2SAT 99
== END 2024-03-11 11:22 | disposition home or self-care (01) ==
LOC: SC 11:21
PROVIDERS: ATTEND Nurse Practitioner Family
DX: G47.33 Obstructive sleep apnea (adult) (pediatric) (principal); E66.01 Morbid (severe) obesity due to excess calories; Z68.41 Body mass index [BMI] 40.0-44.9, adult
CPT/HCPCS: 99213; G0463; 99212